=== PATIENT | female | born 1980 | race Caucasian/White ===

== ENCOUNTER 2017-02-01 13:09 | Emergency (ER) | payer OTHER ==
[~2017-02-01] VITALS: Ht 149.9 cm; Wt 56.7 kg
[~2017-02-01 13:09] MED LIST: BACL-67 PO; BIOT10005 PO; BIRTH CONTROL PILL PO; CHEW500C2 PO; CLAR1TAB2 PO; DIVA50TAEC PO; FISH1000 PO; GABA-283 PO; MEDR1VL IM; MELA0.02 PO; MOBI15TA PO; PRIL20CA9 PO; ROBA750T4 PO; SUMA25TA3 PO; TOPA200T6 PO; TOPA50TA7 PO; VALA1TAB PO; VITA500T53 PO; ZYRT10TA2 PO
--- NOTE | 2017-02-01 16:56 | REP ---
Clinical: Trauma. Injury . Technique: AP, lateral, bilateral oblique views of the left elbow. Findings: No acute fracture or dislocation is appreciated. Joint spaces and surrounding soft tissues appear normal. Lateral view demonstrates normal positioning to the anterior and posterior fat pads without evidence for effusion/hemarthrosis. No subcutaneous emphysema or foreign body identified. Impression: Normal left elbow radiographs. No acute fracture or dislocation. Signed by Ethan Malik MD 02/01/2017 04:48 P
[2017-02-01 17:32] VITALS: BP 133/83
== END 2017-02-01 17:34 | disposition home or self-care (01) ==
LOC: M ED 14:55
DX: S50.02XA Contusion of left elbow, initial encounter (principal); Y00.XXXA Assault by blunt object, initial encounter; Y92.098 Other place in other non-institutional residence as the place of occurrence of the external cause; Y93.89 Activity, other specified; Y99.8 Other external cause status; F17.200 Nicotine dependence, unspecified, uncomplicated; Z88.5 Allergy status to narcotic agent; Z88.8 Allergy status to other drugs, medicaments and biological substances

== ENCOUNTER 2020-11-03 15:42 | Emergency (ER) | payer OTHER ==
[~2020-11-03] VITALS: Ht 149.9 cm; Wt 69.0 kg
[~2020-11-03 15:42] MED LIST changes: -BACL-67 PO; +BACL1TAB9 PO; -BIOT10005 PO; +BIOT10008 PO; +CALC-362 PO; -CHEW500C2 PO; -GABA-283 PO; +GABA-845 PO; -MELA0.02 PO; +MELA3TAB49 PO; -TOPA200T6 PO; +TOPA200T7 PO; -TOPA50TA7 PO; +TOPA50TA8 PO; -VALA1TAB PO; +VALA1TAB5 PO; +VITA500T17 PO; -VITA500T53 PO; +ZYRT10CA5 PO; -ZYRT10TA2 PO
[2020-11-03 15:43] VITALS: BP 109/74
[2020-11-03 16:22] LABS: BASO % 0.4 % (0.0-1.0); EOS # 0.1 10^3/uL (0.0-0.5); EOS % 1.7 % (0.0-3.0); HEMATOCRIT 38.3 % (36.0-47.0); HEMOGLOBIN 12.9 g/dl (12.0-15.5); LYMPH # 2.3 10^3/uL (1.5-5.0); LYMPH % 27.8 % (24.0-44.0); MEAN CORPUSCULAR HEMOGLOBIN 30.5 pg (27.0-33.0); MEAN CORPUSCULAR HGB CONC 33.7 g/dl (32.0-36.5); MEAN CORPUSCULAR VOLUME 90.5 fl (80.0-96.0); MONO # 0.5 10^3/uL (0.0-0.8); MONO % 5.7 % (0.0-5.0); NEUTROPHILS # 5.4 10^3/uL (1.5-8.5); PLATELET COUNT, AUTOMATED 227 10^3/uL (150-450); RED BLOOD COUNT 4.23 10^6/uL (4.00-5.40); WHITE BLOOD COUNT 8.4 10^3/uL (4.0-10.0)
[2020-11-03] MEDS ORDERED: NORCO, ANEXSIA 5/325MG TABLET (HYDROcodone/ACETAMINOPHEN) PO ONE (16:30)
[2020-11-03 17:03] LABS: BLOOD UREA NITROGEN 7 MG/DL (7-18); CALCIUM LEVEL 8.6 MG/DL (8.5-10.1); CARBON DIOXIDE LEVEL 25 MEQ/L (21-32); CHLORIDE LEVEL 108 MEQ/L (98-107); GLOMERULAR FILTRATION RATE > 60.0 (>58); GLUCOSE, FASTING 93 MG/DL (70-100); HCG, SERUM QUANTITATIVE 36474 MIU/ML; POTASSIUM SERUM 4.1 MEQ/L (3.5-5.1); SODIUM LEVEL 139 MEQ/L (136-145)
--- NOTE | 2020-11-03 18:09 | REPVR ---
PROCEDURE INFORMATION: Exam: US First Trimester, Transabdominal Exam date and time: 11/03/2020 5:39 PM Age: 40 years old Clinical indication: Lmp or gestational age (in weeks): Unsure; Antepartum complications; Bleeding; ; Additional info: Bleeding/cramping TECHNIQUE: Imaging protocol: Real-time transabdominal obstetrical ultrasound of the maternal pelvis and a first trimester , less than 14 weeks 0 days, with image documentation. COMPARISON: No relevant prior studies available. FINDINGS: Gestation: No fetus demonstrated. Embryonic/ heart rate: Not applicable BIOMETRY: Gestational age (AUA): Unknown menstrual history. MATERNAL: Uterus: Uterus measures 17 x 6.5 x 8 cm. Cervix: There is marked widening of the endometrial echo complex measuring 3.4 cm containing hypoechoic complex material extending from the fundus to the cervix. Retained products of conception not excluded with a suggestion of retained parts. Right adnexa: Not visualized. Left adnexa: Unremarkable. Intraperitoneal space: No intraperitoneal free fluid. IMPRESSION: There is marked widening of the endometrial echo complex measuring 3.4 cm containing hypoechoic complex material extending from the fundus to the cervix. Retained products of conception not excluded. Also, considering the HCG levels currently above 36,000 international units ectopic is not excluded. Follow-up beta HCG levels suggested. Electronically signed by: Cedrick Fernandes On 11/03/2020 18:09:14 PM
[2020-11-03 19:00] LABS: BILIRUBIN, URINE MANUAL NEGATIVE (NEGATIVE); GLUCOSE, URINE (UA) MANUAL NEGATIVE (NEGATIVE); KETONE, URINE MANUAL NEGATIVE (NEGATIVE); UROBILINOGEN, URINE MANUAL NORMAL (NORMAL)
[2020-11-03 19:12] LABS: AMORPHOUS SEDIMENT, URINE LARGE AMOUNT (NEGATIVE); BACTERIA, URINE SMALL AMOUNT; RBC, URINE TNTC /hpf (0-3)
[2020-11-03 19:13] LABS: HYALINE CAST, URINE NONE SEEN /lpf (0-1); SQUAMOUS EPITHELIAL CELL URINE SMALL AMOUNT /hpf (SMALL AMT)
[2020-11-03] MEDS ORDERED: METHYLERGONOVINE MALEATE 0.2 MG TAB PO ONE (19:15)
[2020-11-03] MEDS ORDERED: METH0.2T53 PO (19:17)
[2020-11-03] MEDS ORDERED: NORC1TAB7 PO (19:17)
--- NOTE | 2020-11-03 19:30 | ED PDOC ---
Post-Departure Follow-Up 1st trimester us faxed to dr fitzgerald for fu [email or web address] Viola Andrews MD Nov 03, 2020 19:29
== END 2020-11-03 19:50 | disposition home or self-care (01) ==
LOC: M ED 15:42
DX: O03.4 Incomplete spontaneous abortion without complication (principal); O09.521 Supervision of elderly multigravida, first trimester; O99.341 Other mental disorders complicating pregnancy, first trimester; O99.331 Smoking (tobacco) complicating pregnancy, first trimester; Z88.8 Allergy status to other drugs, medicaments and biological substances; Z88.5 Allergy status to narcotic agent

== ENCOUNTER 2021-03-18 23:31 | Inpatient (IN) | payer OTHER ==
[~2021-03-18] VITALS: Ht 149.9 cm; Wt 76.7 kg
[~2021-03-18 23:31] MED LIST changes: +GABA-283 PO; -GABA-845 PO; +KEFL500C17 PO; +METH0.2T53 PO; +NORC1TAB7 PO
[2021-03-19] VITALS (10 sets, daily range): BP systolic 93–127; BP diastolic 50–75
[2021-03-19] MEDS ORDERED: PRENTAB9 PO (00:04)
[2021-03-19] MEDS ORDERED: LR 1,000 ML IV SCH ×2 (02:05→05:40)
[2021-03-19 02:35] LABS: BASO % 0.2 % (0.0-1.0); EOS # 0.1 10^3/uL (0.0-0.5); EOS % 0.3 % (0.0-3.0); HEMATOCRIT 30.8 % (36.0-47.0); LYMPH # 1.4 10^3/uL (1.5-5.0); LYMPH % 7.4 % (24.0-44.0); MEAN CORPUSCULAR HEMOGLOBIN 30.4 pg (27.0-33.0); MEAN CORPUSCULAR HGB CONC 32.5 g/dl (32.0-36.5); MEAN CORPUSCULAR VOLUME 93.6 fl (80.0-96.0); MONO # 1.5 10^3/uL (0.0-0.8); MONO % 7.8 % (2.0-8.0); NEUTROPHILS # 16.2 10^3/uL (1.5-8.5); NEUTROPHILS % 83.4 % (36.0-66.0); PLATELET COUNT, AUTOMATED 166 10^3/uL (150-450); RED BLOOD COUNT 3.29 10^6/uL (4.00-5.40)
[2021-03-19 02:53] LABS: ALBUMIN 2.4 GM/DL (3.2-5.2); ALT/SGPT 11 U/L (12-78); BILIRUBIN,TOTAL 0.3 MG/DL (0.2-1.0); BLOOD UREA NITROGEN 5 MG/DL (7-18); CALCIUM LEVEL 8.2 MG/DL (8.5-10.1); CARBON DIOXIDE LEVEL 24 MEQ/L (21-32); CHLORIDE LEVEL 105 MEQ/L (98-107); CREATININE FOR GFR 0.39 MG/DL (0.55-1.30); GLOMERULAR FILTRATION RATE > 60.0 (>58); GLUCOSE, FASTING 83 MG/DL (70-100); POTASSIUM SERUM 4.2 MEQ/L (3.5-5.1); SODIUM LEVEL 136 MEQ/L (136-145); TOTAL PROTEIN 5.7 GM/DL (6.4-8.2)
[2021-03-19 02:56] LABS: AMPHETAMINES URINE REFLEX NEGATIVE (NEGATIVE); BARBITURATES URINE REFLEX NEGATIVE (NEGATIVE); BENZODIAZEPINES URINE REFLEX NEGATIVE (NEGATIVE); CANNABINOIDS URINE REFLEX NEGATIVE (NEGATIVE); METHADONE URINE REFLEX NEGATIVE (NEGATIVE); OPIATES URINE REFLEX NEGATIVE (NEGATIVE); PHENCYCLIDINE URINE REFLEX NEGATIVE (NEGATIVE)
[2021-03-19 03:01] LABS: WHITE BLOOD COUNT 19.4 10^3/uL (4.0-10.0)
--- NOTE | 2021-03-19 03:12 | REPVR ---
PROCEDURE INFORMATION: Exam: US First Trimester, Transabdominal Exam date and time: 03/19/21 (1:16am) Age: 41 years old Clinical indication: female. Gestational age: 26 weeks 6 days. No care. Check EFBW, gestational age, placenta location, KADIE. S/P (x 3). TECHNIQUE: Imaging protocol: Real-time transabdominal obstetrical ultrasound of the maternal pelvis and a first trimester , less than 14 weeks 0 days, with image documentation COMPARISON: US OB of 12/01/15 US OB report of 11/03/20 FINDINGS: The LMP is not provided. A single live intrauterine is identified, approx. 27 weeks 1 day composite gestational age. Measured age parameters are as follows: BPD 67 mm 27 weeks 1 day HC 245 mm 26 weeks 5 days AC 241 mm 28 weeks 3 days FL 48 mm 26 weeks 2 days Humerus 44 mm 26 weeks 0 days heart rate is recorded at 160 bpm. The fetus lies breech. The placenta is posterior, with no evidence of previa. The placenta is Grade I. Hypoechoic area at the fundal region of the uterus -- perhaps residual hemorrhage / blood products (complex intrauterine material noted on sonogram of 11/03/20). The cervix measures 2.7 cm in length, with 'funnelling' likely present. The EFBW = 1064 gms (2 lb 6 oz) Amniotic fluid volume is low, with the KADIE = 4.1 cm (at < 3rd percentile for this age). The deepest fluid pocket = 2.0 cm. Umbilical artery S/D ratio = 3.97 (in the normal range). A limited anatomic survey was performed. The brain, diaphragm, kidneys, and urinary bladder appear unremarkable. IMPRESSION: A single live intrauterine is identified, approx. 27 weeks 1 day gestational age. Based on this sonogram, the GREY = 06/17/21. heartbeat is seen. The placenta is posterior, with no previa noted. The cervix is closed. 'Funnelling' likely observed. Limited anatomic survey. No definite anomalies are seen. Oligohydramnios (KADIE = 4.1 cm) (at <3rd percentile for this age). EFBW = 1064 gms. Perhaps some residual blood products in the uterine cavity, at the fundal region. Electronically signed by: Valarie Coello On 03/19/2021 03:11:48 AM
[2021-03-19] MEDS ORDERED: LACTATED RINGER'S 1000 ML IV STA (03:23)
[2021-03-19] MEDS ORDERED: ceFAZolin SOD 2 GM in IV 1 EA IV ONE (03:25)
[2021-03-19] MEDS ORDERED: BICITRA 30ML SOLN UDC PO ONE (03:25)
[2021-03-19] MEDS ORDERED: AZITHROMYCIN INJ 500 MG, VIAL MATE ADAPTER 1 EACH in NS 250 ML IV ONE (03:25)
[2021-03-19] MEDS ORDERED: ONDANSETRON 4MG/2ML VIAL As Ordered ONE (03:28)
[2021-03-19] MEDS ORDERED: fentaNYL 100 MCG/2 ML INJECTION (J3010) As Ordered ONE ×2 (03:28→05:35)
[2021-03-19] MEDS ORDERED: PHENYLephrine 500MCG 5ML (100MCG/ML) SYRINGE As Ordered ONE (03:29)
[2021-03-19] MEDS ORDERED: SUGAMMADEX SODIUM 500 MG/5 ML VIAL (BRIDION) As Ordered ONE (03:29)
[2021-03-19] MEDS ORDERED: dexameTHASONE 4 MG/ML 1ML VIAL (J1100 PER 1MG) As Ordered ONE (03:29)
[2021-03-19] MEDS ORDERED: ACETAMINOPHEN 1000MG 100ML IV BTL (OFIRMEV) (J0131 PER 10MG) As Ordered ONE (03:29)
[2021-03-19] MEDS ORDERED: KETOROLAC 60MG 2ML VIAL As Ordered ONE (03:29)
[2021-03-19] MEDS ORDERED: LIDOCAINE 2% 100MG/5ML SDV (FOR ANES.) As Ordered ONE (03:29)
[2021-03-19] MEDS ORDERED: ePHEDrine SULFATE 25 MG/5 ML(5MG/ML) SYRINGE As Ordered ONE (03:29)
[2021-03-19] MEDS ORDERED: ROCURONIUM BROMIDE 50 MG/5 ML VIAL As Ordered ONE (03:29)
[2021-03-19] MEDS ORDERED: propofoL 200 MG/20 ML VIAL As Ordered ONE (03:29)
[2021-03-19 03:30] LABS: COCAINE METABOLITE URINE REFLE PENDING CONFIRMATION (NEGATIVE)
[2021-03-19] MEDS ORDERED: MIDAZOLAM INJ 2MG/2ML VIAL (J2250 PER 1MG) As Ordered ONE (03:34)
[2021-03-19] MEDS ORDERED: OXYTOCIN INJ 10 UNITS/ML VIAL (J2590) As Ordered ONE (04:19)
[2021-03-19] MEDS: fentaNYL 100 MCG/2 ML INJECTION (J3010) IV PRN ×4 (05:36→05:51)
[2021-03-19] MEDS: LR 1,000 ML IV SCH ×3 (05:40→21:40)
[2021-03-19] MEDS ORDERED: RHOGAM 300 MCG (1500 IU) INJ (J2790) IM SCH (05:40)
[2021-03-19] MEDS ORDERED: PERCOCET 5MG/325MG TAB PO PRN (05:40)
[2021-03-19] MEDS ORDERED: DOCUSATE SODIUM 100MG CAPSULE PO PRN (05:40)
[2021-03-19] MEDS ORDERED: MEASLES,MUMPS,RUBELLA VACCINE INJ (MMR-II) (90707) SC SCH (05:40)
[2021-03-19] MEDS ORDERED: oxyCODONE 5MG TAB PO PRN (05:40)
[2021-03-19] MEDS ORDERED: ONDANSETRON 4MG/2ML VIAL IV PRN ×2 (05:40)
[2021-03-19] MEDS ORDERED: SIMETHICONE 80MG CHEW TAB PO PRN (05:40)
[2021-03-19] MEDS ORDERED: OXYTOCIN DRIP 30 UNITS in IV 1 EA IV SCH (05:40)
[2021-03-19] MEDS ORDERED: MORPHINE 4 MG/ML 1ML VIAL/SYRINGE (J2270) IV PRN (05:45)
[2021-03-19 06:08] LABS: HEMATOCRIT 30.6 % (36.0-47.0); HEMOGLOBIN 10.1 g/dl (12.0-15.5); MEAN CORPUSCULAR HEMOGLOBIN 30.1 pg (27.0-33.0); MEAN CORPUSCULAR VOLUME 91.3 fl (80.0-96.0); PLATELET COUNT, AUTOMATED 143 10^3/uL (150-450); RED BLOOD COUNT 3.35 10^6/uL (4.00-5.40); WHITE BLOOD COUNT 20.4 10^3/uL (4.0-10.0)
[2021-03-19 06:23] LABS: RSV AMPLIFICATION NEGATIVE (NEGATIVE)
[2021-03-19] MEDS: PRENATAL VITAMINS CHEWABLE TABLET PO SCH (09:07)
--- NOTE | 2021-03-19 09:15 | HPEPDOC ---
Obstetrical History & Physical General Date of Admission March 19, 2021 at 02:58 History of Present Illness 41 yo female, unknown gestational age, presents with lower abdominal pain for two days. She leaked a foul smelling, green colored drainage from the vagina for an uncertain amount of time. She had no care. She had an ultrasound from 11/03/2020 in the ER which showed a possible incomplete spontaneous . No fevers. Pain is becoming worse. Information Provided By: Patient Care Care: None Dating Final EDC: March 19, 2021 Antepartum Course Diagnos(e)s No care Past Medical History Past Obstetrical History : Past Obstetrical History: Multigravida Past Medical History Medical History Medical hx: 1. h/o drug use, including cocaine 2. Anxiety 3. Bipolar 4. 1 PPD smoker Surgical hx: 1. section x 3 2. Epidural injections cervical spine 3. removal of mass from shoulder Family History Significant Family History: No pertinent family hx Social History Marital Status: Single * Smoker: current smoker Allergies Coded Allergies: meperidine (Verified Allergy, Unknown, 03/19/21) nitrofurantoin (Verified Allergy, Unknown, 03/19/21) tramadol (Verified Allergy, Unknown, 03/19/21) Medications Scheduled No.137/Iron/Folic Acd ( Vitamin Tablet) 1 Each Tablet, 1 TAB PO DAILY Physical Examination Physical Examination GENERAL: Alert and oriented times three. BREAST: . ABDOMEN: Gravid and non-tender to touch. FETUS: Is vertex (VTX) by sterile vaginal examination (SVE), fetus is vertex (VTX) by Kristopher. HEART RATE: Regular rate and rhythm. LUNGS: Clear to auscultation (CTA). EXTREMITIES: No edema. No clonus. Deep tendon reflexes (DTRs) + . Vital Signs/I&O Vital Signs Date Time Temp Pulse Resp B/P (MAP) Pulse Ox O2 Delivery O2 Flow Rate FiO2 03/19/21 08:45 97.5 79 16 106/52 (70) 99 Nasal Cannula 10.0 I&O- Last 24 Hours up to 6 AM 03/19/21 06:00 Intake Total 2700 ml Output Total 2750 ml Balance -50 ml Laboratory Data 24H LABS Laboratory Tests 2 03/19/21 02:10: Urine Opiates Screen NEGATIVE, Urine Methadone Screen NEGATIVE, Urine Barbiturates Screen NEGATIVE, Urine Phencyclidine Screen NEGATIVE, Urine Amphetamines Screen NEGATIVE, Urine Benzodiazepines Screen NEGATIVE, Urine Cocaine Metabolite Screen PENDING CONFIRMATIONH, Urine Cannabinoids Screen NEGATIVE 03/19/21 02:13: Immature Granulocyte % (Auto) 0.9, Neutrophils (%) (Auto) 83.4H, Lymphocytes (%) (Auto) 7.4L, Monocytes (%) (Auto) 7.8, Eosinophils (%) (Auto) 0.3, Basophils (%) (Auto) 0.2, Neutrophils # (Auto) 16.2H, Lymphocytes # (Auto) 1.4L, Monocytes # (Auto) 1.5H, Eosinophils # (Auto) 0.1, Basophils # (Auto) 0.0, Nucleated Red Blood Cells % (auto) 0.1H, Anion Gap 7L, Glomerular Filtration Rate > 60.0, Calcium Level 8.2L, Total Bilirubin 0.3, Aspartate Amino Transf (AST/SGOT) 4L, Alanine Aminotransferase (ALT/SGPT) 11L, Alkaline Phosphatase 115, Total Protein 5.7L, Albumin 2.4L, Albumin/Globulin Ratio 0.7L, Hepatitis B Surface Antigen NEGATIVEL 03/19/21 05:44: Coronavirus (COVID-19)(PCR) NEGATIVE, Influenza Type A (RT-PCR) NEGATIVE, Influenza Type B (RT-PCR) NEGATIVE, Respiratory Syncytial Virus (PCR) NEGATIVE 03/19/21 05:54: Nucleated Red Blood Cells % (auto) 0.0 03/19/21 07:55: Serology Scanned Report Hepatitis B Testing CBC/BMP Laboratory Tests 03/19/21 02:13 03/19/21 05:54 Anatomy Ultrasound Ultrasound Date: Nov 03, 2020 Placenta Location: Posterior (possible incomplete , gestationa lsac and pole seen near cervix.) Normal Anatomy: No Other Ultrasounds 03/19/2021: 27 1/ week SIUP, MA=812, breech, oligohydramnios, blood clot near placenta Steroid Therapy Steroid Therapy: No Vaginal Examination Dilation: 4 cm Cervical Consistency: Soft Cervical Position: Posterior Presentation: Breech presentation Assessment Variability: Moderate Accelerations: Positive Decelerations: None Tocometer Contractions: Yes Frequency: regular, every 1-3 min. Assessment/Plan Assessment Pt is a 41-year-old (G)4 para (P)3 at 27+1 weeks by 7-week ultrasound presents to Labor and Delivery with painful contractions in labor with SROM. Pt likely has scare based upon early ultrasound. High risk of placenta accreta. Also, probable chorioamnionitis based upon foul smell of vaginal discharge. Plan Admit and orient. Consent for signed Discussed possible placenta accreta and scar ; likely need for hysterectomy. Poor prognosis for fetus discussed with patient. T+C for blood Plan surgery in Main OR RUBEN WEI MD March 19, 2021 09:15
--- NOTE | 2021-03-19 09:48 | ROOPDOC ---
[facility] Report Of Operation Report of Operation DATE OF PROCEDURE: 03/19/21 Report of operation Preoperative diagnosis: 27 weeks, PROM, chorioamnionitis, scar , probable placenta accreta, breech Postoperative diagnosis: same Procedure: Repeat section, supracervical hysterectomy, lysis of adhesions. Surgeon: Ruben Wei M.D. Asst.: Ernesto Bauer DO Anesthesia: GETA EBL: 1200 ml. Fluid: 2 unit PRBC's, 1 unit FFP, 1400 ml LR Urine output: 100 mL's. Findings: 1000 gram male infant, breech, fetus present in scar, posterior placenta accreta, purulent drainage dense adhesions of uterus to anterior abdominal wall.. Operative summary: Patient taken to the operating room where general endotracheal anesthesia was induced. She was prepped draped in a sterile fashion in the supine position. A Chacon catheter was placed. A vertical midline incision was made with a scalpel. Fascia was incised and extended. The peritoneal cavity was entered. Dense adhesions of the uterus to the anterior abdominal wall were taken down sharply. A bladder flap was created. A vertical midline incision was created over the area of the prior scar. The incision was extended manually. The was delivered from the breech position without difficulty. Cord was double clamped and cut. The was handed waiting Temporary Administrative Assistant. The placenta was noted to be densely adherent to the posterior and lateral lower uterine segment. A brief attempt was made to remove the placenta manually. The diagnosis of placenta accreta was confirmed. A decision was made to perform a hysterectomy. The round ligaments were grasped with Jayla clamps, incised and suture ligated. A window was created in the broad ligament. The utero-ovarian ligaments were clamped, incised, suture ligated. The uterine vessels were clamped with Marilou clamps adjacent to the level of the internal os. The area was incised and suture ligated with 0 Vicryl suture. The uterus was amputated with the use of a scalpel. The cervical cuff was closed with 0 Vicryl suture in a running locked fashion. Several [id number] sutures were placed for hemostasis. The pelvis was copiously irrigated. Good hemostasis was noted. Fascia was closed with 0 Vicryl in a running fashion. The deep layer was irrigated and closed with 2-0 chromic suture. The skin was closed with 4-0 Monocryl subcuticular suture. Sponge, instrument and needle counts were correct. Ernesto Bauer DO, assisted with all aspects of the procedure. She was indispensable to the successful performance of this procedure. RUBEN WEI MD March 19, 2021 09:48
[2021-03-19] MEDS: KETOROLAC 30 MG/ML 1ML VIAL IV SCH ×3 (09:50→22:15)
[2021-03-19 11:32] LABS: HIV 1&2 SCREEN CENTAUR NEGATIVE (NEGATIVE)
[2021-03-19] MEDS: AMPICILLIN SOD/SULBACTAM SOD 3 GM in D5W MINI-BAG PLUS 100 ML IV SCH ×3 (12:01→23:33)
[2021-03-19] MEDS: PERCOCET 5MG/325MG TAB PO PRN ×2 (14:35→19:56)
[2021-03-19 15:13] LABS: HEMATOCRIT 30.2 % (36.0-47.0); HEMOGLOBIN 10.1 g/dl (12.0-15.5); MEAN CORPUSCULAR HEMOGLOBIN 30.5 pg (27.0-33.0); MEAN CORPUSCULAR HGB CONC 33.4 g/dl (32.0-36.5); MEAN CORPUSCULAR VOLUME 91.2 fl (80.0-96.0); PLATELET COUNT, AUTOMATED 153 10^3/uL (150-450); RED BLOOD COUNT 3.31 10^6/uL (4.00-5.40); WHITE BLOOD COUNT 17.1 10^3/uL (4.0-10.0)
[2021-03-20 02:00] VITALS: BP 102/57
[2021-03-20] MEDS: PERCOCET 5MG/325MG TAB PO PRN ×4 (02:35→17:13)
[2021-03-20] MEDS: LR 1,000 ML IV SCH ×2 (05:40→13:40)
[2021-03-20 06:00] VITALS: BP 109/58
[2021-03-20] MEDS ORDERED: IBUPROFEN 800 MG TAB PO SCH ×2 (06:00→12:00)
[2021-03-20] MEDS: AMPICILLIN SOD/SULBACTAM SOD 3 GM in D5W MINI-BAG PLUS 100 ML IV SCH ×2 (06:32→12:10)
[2021-03-20 07:07] LABS: HEMATOCRIT 27.8 % (36.0-47.0); HEMOGLOBIN 9.3 g/dl (12.0-15.5); MEAN CORPUSCULAR HEMOGLOBIN 30.6 pg (27.0-33.0); MEAN CORPUSCULAR HGB CONC 33.5 g/dl (32.0-36.5); MEAN CORPUSCULAR VOLUME 91.4 fl (80.0-96.0); PLATELET COUNT, AUTOMATED 155 10^3/uL (150-450); RED BLOOD COUNT 3.04 10^6/uL (4.00-5.40); WHITE BLOOD COUNT 15.7 10^3/uL (4.0-10.0)
--- NOTE | 2021-03-20 07:29 | IPNPDOC ---
Text Note Date of Service The patient was seen on 03/20/21. NOTE PO #1 Weepy "nothing you can help with". Voiding,feeling gassy and uncomfortable VSS, afebrile, normotensive Breasts soft Fundus firm Dressing intact, old drainage Lochia rubra light without odor PO #1 Routine care. Consider discharge later today or tomorrow VS,Fishbone, I+O VS, Fishbone, I+O Laboratory Tests 03/19/21 14:54 03/20/21 06:46 Vital Signs Date Time Temp Pulse Resp B/P (MAP) Pulse Ox O2 Delivery O2 Flow Rate FiO2 03/20/21 06:33 20 03/20/21 06:00 98.9 100 109/58 (75) 100 Room Air 03/19/21 09:45 10.0 I&O- Last 24 Hours up to 6 AM 03/20/21 05:59 Intake Total 850 ml Output Total 2000 ml Balance -1150 ml Bharti Cotto CNM March 20, 2021 07:29
[2021-03-20] MEDS ORDERED: MAALOX 30 ML SUSP *UDC PO ONE (07:30)
[2021-03-20] MEDS: PRENATAL VITAMINS CHEWABLE TABLET PO SCH (08:14)
[2021-03-20] MEDS ORDERED: PERCOCET 5MG/325MG TAB PO ONE (08:15)
[2021-03-20 10:00] VITALS: BP 101/60
[2021-03-20] MEDS ORDERED: PERCOCET 5MG/325MG TAB PO PRN (10:00)
[2021-03-20 14:00] VITALS: BP 127/65
[2021-03-20] MEDS ORDERED: PERCOCET PO (17:47)
[2021-03-20] MEDS ORDERED: IBUP80TA PO (17:47)
[2021-03-20 18:00] VITALS: BP 111/76
[2021-03-23 15:09] LABS: Cocaine Positive (.); GC Benzoylecgon 660 ng/mL (Cutoff=150)
== END 2021-03-20 18:25 | disposition home or self-care (01) | DRG 540 ==
LOC: M LDO 23:31 → M LDI 03-19 02:58 → M OBS 03-19 06:27
PROVIDERS: ADMIT Specialist; ATTEND Specialist
PROC: 10D00Z1 Extraction of Products of Conception, Low, Open Approach (ICD-10-PCS; principal; 2021-03-19 03:26)
PROC: 0UT90ZZ Resection of Uterus, Open Approach (ICD-10-PCS; 2021-03-19 03:26)
DX: O43.212 Placenta accreta, second trimester (principal); O41.1220 Chorioamnionitis, second trimester, not applicable or unspecified; O99.322 Drug use complicating pregnancy, second trimester; O41.02X0 Oligohydramnios, second trimester, not applicable or unspecified; Z20.822 Contact with and (suspected) exposure to COVID-19; O99.332 Smoking (tobacco) complicating pregnancy, second trimester; F17.200 Nicotine dependence, unspecified, uncomplicated; O99.342 Other mental disorders complicating pregnancy, second trimester; F41.9 Anxiety disorder, unspecified; F32.9 Major depressive disorder, single episode, unspecified; F14.10 Cocaine abuse, uncomplicated; O32.1XX0 Maternal care for breech presentation, not applicable or unspecified; O34.211 Maternal care for low transverse scar from previous cesarean delivery; Z37.0 Single live birth

== ENCOUNTER 2021-03-21 01:40 | Emergency (ER) | payer OTHER ==
[~2021-03-21 01:40] MED LIST changes: +IBUP80TA PO; +PERCOCET PO; +PRENTAB9 PO
[2021-03-21 02:35] LABS: BASO # 0.1 10^3/uL (0.0-0.2); BASO % 0.4 % (0.0-1.0); EOS # 0.2 10^3/uL (0.0-0.5); EOS % 1.3 % (0.0-3.0); HEMATOCRIT 30.3 % (36.0-47.0); HEMOGLOBIN 10.2 g/dl (12.0-15.5); LYMPH # 1.8 10^3/uL (1.5-5.0); LYMPH % 10.3 % (24.0-44.0); MEAN CORPUSCULAR HEMOGLOBIN 30.7 pg (27.0-33.0); MEAN CORPUSCULAR HGB CONC 33.7 g/dl (32.0-36.5); MEAN CORPUSCULAR VOLUME 91.3 fl (80.0-96.0); MONO # 0.7 10^3/uL (0.0-0.8); MONO % 3.9 % (2.0-8.0); NEUTROPHILS # 14.1 10^3/uL (1.5-8.5); NEUTROPHILS % 82.3 % (36.0-66.0); PLATELET COUNT, AUTOMATED 179 10^3/uL (150-450); RED BLOOD COUNT 3.32 10^6/uL (4.00-5.40); WHITE BLOOD COUNT 17.1 10^3/uL (4.0-10.0)
[2021-03-21] MEDS ORDERED: ONDANSETRON 4MG/2ML VIAL IV ONE (02:35)
[2021-03-21] MEDS: MORPHINE 4 MG/ML 1ML VIAL/SYRINGE (J2270) IV PRN ×2 (02:46→03:50)
[2021-03-21 02:55] LABS: BLOOD UREA NITROGEN 7 MG/DL (7-18); CALCIUM LEVEL 7.6 MG/DL (8.5-10.1); CARBON DIOXIDE LEVEL 29 MEQ/L (21-32); CHLORIDE LEVEL 107 MEQ/L (98-107); CREATININE FOR GFR 0.35 MG/DL (0.55-1.30); GLOMERULAR FILTRATION RATE > 60.0 (>58); GLUCOSE, FASTING 79 MG/DL (70-100); SODIUM LEVEL 140 MEQ/L (136-145)
[2021-03-21] MEDS ORDERED: MORPHINE 4 MG/ML 1ML VIAL/SYRINGE (J2270) IV PRN (06:30)
[2021-03-21 09:51] VITALS: BP 123/66
== END 2021-03-21 10:17 | disposition home or self-care (01) ==
LOC: M ED 01:40
DX: G89.18 Other acute postprocedural pain (principal); F19.10 Other psychoactive substance abuse, uncomplicated; F41.1 Generalized anxiety disorder; F17.200 Nicotine dependence, unspecified, uncomplicated; Z88.5 Allergy status to narcotic agent; Z88.1 Allergy status to other antibiotic agents
CPT/HCPCS: 80048; 85025; 86850; 86900; 86901; 96374; 96375; 96376; 99285; J2270; J2405

== ENCOUNTER 2021-08-25 04:13 | Emergency (ER) | payer OTHER ==
[~2021-08-25] VITALS: Ht 149.9 cm; Wt 70.3 kg
[2021-08-25 09:20] LABS: RSV AMPLIFICATION NEGATIVE (NEGATIVE)
--- NOTE | 2021-08-25 09:43 | REP ---
INDICATION: cough, chills r/o pneumonia COMPARISON: 03/25/2013 TECHNIQUE: PA and lateral. FINDINGS: The mediastinum and cardiac silhouette are normal. The lung foster are clear and without acute consolidation, effusion, or pneumothorax. The skeletal structures are intact and normal. IMPRESSION: No focal consolidation. <Electronically signed by Ethan Malik > 08/25/21 0939
[2021-08-25] MEDS ORDERED: VENTAER INH (10:24)
[2021-08-25] MEDS ORDERED: MUCI600T31 PO (10:24)
[2021-08-25] MEDS ORDERED: AUGM875T28 PO (10:24)
[2021-08-25 10:44] VITALS: BP 127/87
== END 2021-08-25 10:47 | disposition home or self-care (01) ==
LOC: M ED 04:13
DX: J02.9 Acute pharyngitis, unspecified (principal); J44.1 Chronic obstructive pulmonary disease with (acute) exacerbation; F31.9 Bipolar disorder, unspecified; F17.200 Nicotine dependence, unspecified, uncomplicated; Z88.5 Allergy status to narcotic agent; Z88.8 Allergy status to other drugs, medicaments and biological substances

== ENCOUNTER 2025-09-15 19:23 | Inpatient (IN) | payer OTHER ==
[~2025-09-15] VITALS: Ht 149.9 cm; Wt 76.4 kg
[~2025-09-15 19:23] MED LIST changes: +AUGM875T28 PO; -GABA-283 PO; +GABA-284 PO; +MUCI600T31 PO; +VENTAER INH; -VITA500T17 PO; +VITA500T8 PO
[2025-09-15 20:11] LABS: PLATELET COUNT, AUTOMATED 250 10^3/uL (150-450)
[2025-09-15 20:45] LABS: ETHYL ALCOHOL (ETHANOL) 0.005 % (0.000-0.010)
[2025-09-15 20:46] LABS: SALICYLATE LEVEL < 3.0 MG/DL (<30)
[2025-09-15 20:47] LABS: ALT/SGPT 16 U/L (7.0-40); AST/SGOT 15 U/L (<34); CALCIUM LEVEL 9.1 MG/DL (8.5-10.1); CARBON DIOXIDE LEVEL 25 MMOL/L (20-31); CHLORIDE LEVEL 106 MMOL/L (98-107); CREATININE FOR GFR 0.65 MG/DL (0.55-1.30); GLOMERULAR FILTRATION RATE > 90.0 (>58); POTASSIUM SERUM 4.0 MMOL/L (3.5-5.1); SODIUM LEVEL 141 MMOL/L (136-145)
[2025-09-15 21:09] LABS: BARBITURATES URINE NEGATIVE (NEGATIVE); BENZODIAZEPINES URINE NEGATIVE (NEGATIVE)
[2025-09-15 21:10] LABS: CANNABINOIDS URINE NEGATIVE (NEGATIVE); COCAINE METABOLITE URINE NEGATIVE (NEGATIVE); METHADONE URINE NEGATIVE (NEGATIVE); OPIATES URINE NEGATIVE (NEGATIVE); PHENCYCLIDINE URINE NEGATIVE (NEGATIVE)
[2025-09-15 21:13] LABS: AMPHETAMINES LEVEL URINE POSITIVE (NEGATIVE)
[2025-09-15] MEDS ORDERED: HOME MED LIST COMPLETE! XX SCH (21:45)
[2025-09-15] MEDS ORDERED: IBUPROFEN 400 MG TAB PO PRN (22:50)
[2025-09-15] MEDS ORDERED: MOM 30 ML SUSPENSION UDC PO PRN (22:50)
[2025-09-15] MEDS ORDERED: ACETAMINOPHEN 325 MG TAB PO PRN (22:50)
[2025-09-15] MEDS ORDERED: MAALOX 30 ML SUSP *UDC PO PRN (22:50)
[2025-09-15] MEDS: traZODone 50 MG TAB PO PRN (23:46)
[2025-09-15 23:55] VITALS: BP 123/91; TEMP 97.2; O2SAT 99
[2025-09-16 08:25] VITALS: BP 135/86; TEMP 97.6; O2SAT 98
[2025-09-16] MEDS ORDERED: ALBUTEROL 90 MCG/ACT 8 GM HFA INHALER INH PRN (14:00)
[2025-09-16] MEDS: ADVAIR HFA 115/21 MCG INHALER INH SCH (20:00)
[2025-09-17] MEDS ORDERED: TRAZ-252 PO (09:42)
[2025-09-17] MEDS ORDERED: OLAN1TAB16 PO (09:42)
[2025-09-17] MEDS ORDERED: OLANZapine 5 MG TAB PO SCH (21:00)
== END 2025-09-17 12:28 | disposition home or self-care (01) | DRG 774 ==
LOC: M ED 19:23 → M ED INP 22:48 → M PSY 23:31
PROVIDERS: ADMIT Psychiatry & Neurology Neurology; ATTEND Psychiatry & Neurology Neurology
DX: F15.259 Other stimulant dependence with stimulant-induced psychotic disorder, unspecified (principal); F14.20 Cocaine dependence, uncomplicated; F31.9 Bipolar disorder, unspecified; Z65.3 Problems related to other legal circumstances; Z63.8 Other specified problems related to primary support group; Z88.8 Allergy status to other drugs, medicaments and biological substances

== ENCOUNTER 2025-10-20 18:03 | Emergency (ER) | payer MEDICAID, OTHER ==
[~2025-10-20] VITALS: Ht 149.9 cm; Wt 84.5 kg
[~2025-10-20 18:03] MED LIST changes: +OLAN1TAB16 PO; +TRAZ-252 PO
[2025-10-20 18:41] LABS: BASO # 0.0 10^3/uL (0.0-0.2); BASO % 0.5 % (0.0-1.0); EOS # 0.3 10^3/uL (0.0-0.5); EOS % 3.5 % (0.0-3.0); LYMPH # 2.7 10^3/uL (1.5-5.0); LYMPH % 34.3 % (24.0-44.0); MONO # 0.5 10^3/uL (0.0-0.8); MONO % 6.3 % (2.0-8.0); NEUTROPHILS # 4.3 10^3/uL (1.5-8.5); NEUTROPHILS % 55.0 % (36.0-66.0); PLATELET COUNT, AUTOMATED 229 10^3/uL (150-450)
[2025-10-20 19:09] LABS: CK-MB VALUE MASS 1.3 NG/ML (<3.6)
[2025-10-20 19:11] LABS: ALT/SGPT 23 U/L (7.0-40); AST/SGOT 19 U/L (<34); CALCIUM LEVEL 8.4 MG/DL (8.5-10.1); CARBON DIOXIDE LEVEL 25 MMOL/L (20-31); CHLORIDE LEVEL 104 MMOL/L (98-107); CREATININE FOR GFR 0.55 MG/DL (0.55-1.30); GLOMERULAR FILTRATION RATE > 90.0 (>58); POTASSIUM SERUM 4.4 MMOL/L (3.5-5.1); SODIUM LEVEL 138 MMOL/L (136-145)
[2025-10-20 19:17] LABS: CPK CREATINE PHOSPHOKINASE 100 U/L (34-145); MB/CK RELATIVE INDEX 1.30 (< OR =4)
[2025-10-20] MEDS: ASPIRIN 81 MG CHEWABLE TABLET PO ONE (20:01)
[2025-10-20] MEDS: ACETAMINOPHEN *IV* 1,000 MG in IV 1 EA IV ONE (20:01)
[2025-10-20 20:29] LABS: KETONE, URINE AUTO RFX NEGATIVE (NEGATIVE); LEUKOCYTE ESTERASE UR AUTO RFX NEGATIVE (NEGATIVE); NITRITE, URINE AUTO RFX NEGATIVE (NEGATIVE); RBC, URINE AUTO RFX 0 /HPF (0-3); SQUAM EPITHELIAL CELL UR AURFX 9 /HPF (0-6); WBC, URINE AUTO RFX 0 /HPF (0-3)
[2025-10-20 20:30] LABS: D-DIMER QUANT 0.54 ug/mL (<0.5); INR 0.86
[2025-10-20 20:33] LABS: CK-MB VALUE MASS 1.1 NG/ML (<3.6)
[2025-10-20 20:37] LABS: FREE T4 0.77 NG/DL (0.89-1.76)
[2025-10-20] MEDS ORDERED: ISOVUE-370 76% 100 ML VIAL As Ordered ONE (21:06)
[2025-10-20 21:46] LABS: CPK CREATINE PHOSPHOKINASE 95 U/L (34-145); MB/CK RELATIVE INDEX 1.15 (< OR =4)
[2025-10-20] MEDS: NS (Normal Saline) 0.9% 1,000 ML IV ONE (22:10)
[2025-10-20] MEDS ORDERED: SENN-188 PO (23:27)
[2025-10-20] MEDS ORDERED: MIRA3350 PO (23:27)
[2025-10-21 01:00] VITALS: BP 116/61; TEMP 98; O2SAT 98
== END 2025-10-21 01:14 | disposition home or self-care (01) ==
LOC: M ED 18:03
DX: R07.9 Chest pain, unspecified (principal); R06.02 Shortness of breath; K59.00 Constipation, unspecified; E07.9 Disorder of thyroid, unspecified; I70.0 Atherosclerosis of aorta; F17.200 Nicotine dependence, unspecified, uncomplicated; F19.10 Other psychoactive substance abuse, uncomplicated; Z88.5 Allergy status to narcotic agent; Z88.8 Allergy status to other drugs, medicaments and biological substances; Z79.899 Other long term (current) drug therapy
CPT/HCPCS: 71045; 71275; 74177; 80048; 80076; 81001; 82550; 82553; 83880; 84439; 84443; 84484; 85025; 85379; 85610; 85730; 87486; 87581; 87633; 87798; 93005; 93041; 94760; 96361; 96365; 99285; J0134; Q9967